=== PATIENT | female | born 1975 | race Caucasian/White ===

== ENCOUNTER → 2022-12-09 | Outpatient (CLI) | payer BC ==
[2022-12-09 15:13] VITALS: BP 138/80; PULSE 88; TEMP 98.2; BMI 37.5
--- NOTE | 2022-12-09 17:16 | P.BASOAP ---
Subjective Progress Note Date: 12/09/22 Principal diagnosis: Morbid obesity 47-year-old female presents for LAP-BAND evaluation. She thinks she was last seen in 2019. She believes she has less than 5 mL in her band. She believes this is a 10 mL band. Patient states she does not feel much restriction. She has gained significant weight since her band was loosened. She thinks her ideal level was around 7 mL previously. Requesting a lap band fill at this time. Objective - Vital Signs Vital signs: Vital Signs Temp 98.2 F 12/09/22 15:04 Pulse 88 12/09/22 15:04 Resp BP 138/80 12/09/22 15:04 Pulse Ox FiO2 Intake & Output 12/08/22 12/09/22 12/09/22 18:59 06:59 18:59 Weight 97.522 kg - Exam Abdomen: Soft, nontender, nondistended Assessment/Plan (1) Morbid obesity Narrative/Plan: 47-year-old female with morbid obesity. She would like to add fluid to the band. We'll add 1 mL at this time. The patient's lap band port was palpated. The site was aseptically prepped. The Lovett needle was advanced into the port. The port was aspirated. Approximate 5 mL was present. A total of 1 ml of fluid was added for a total of 6 mL. Pressure was held and a sterile dressing was applied. Plan: Date: 12/09/22 Initial Weight: Initial BMI: Current Weight: 97.522 kg Current BMI: 37.5 Type of Surgery: Total Volume in Band: 6 Previous Volume: Volume Removed: Volume Added: 1 Band Size:
== END ==
LOC: BARWHC3 14:53
PROVIDERS: ATTEND Surgery
DX: Z48.815 Encounter for surgical aftercare following surgery on the digestive system (principal); Z98.84 Bariatric surgery status; E66.01 Morbid (severe) obesity due to excess calories; Z68.37 Body mass index [BMI] 37.0-37.9, adult
CPT/HCPCS: 99212

== ENCOUNTER → 2023-06-30 | Outpatient (CLI) | payer BC ==
[2023-06-30 13:04] VITALS: BP 147/98; PULSE 75; TEMP 98.5; BMI 34.9
--- NOTE | 2023-06-30 17:45 | P.BASOAP ---
Subjective Progress Note Date: 06/30/23 Principal diagnosis: Morbid obesity Patient was last seen in the bariatric office in November. She had 1 mL added to her band. Patient says she feels decreased restriction. No nausea or vomiting. Only mild heartburn symptoms at times. Objective - Vital Signs Vital signs: Vital Signs Temp 98.5 F 06/30/23 13:01 Pulse 75 06/30/23 13:01 Resp BP 147/98 06/30/23 13:01 Pulse Ox FiO2 Intake & Output 06/29/23 06/30/23 06/30/23 18:59 06:59 18:59 Weight 89.494 kg - Exam Abdomen: Soft, nontender, nondistended Assessment/Plan (1) Morbid obesity Narrative/Plan: Patient would like a band adjustment. Band accessed sterilely. 0.5 mL added for a total of 6.5 mL. Plan: Date: 06/30/23 Initial Weight: Initial BMI: Current Weight: 89.494 kg Current BMI: 34.9 Type of Surgery: Total Volume in Band: 6 Previous Volume: Volume Removed: Volume Added: Band Size:
== END ==
LOC: BARWHC3 12:43
PROVIDERS: ATTEND Surgery
DX: E66.01 Morbid (severe) obesity due to excess calories (principal); E87.6 Hypokalemia; B34.9 Viral infection, unspecified; Z46.51 Encounter for fitting and adjustment of gastric lap band; Z68.34 Body mass index [BMI] 34.0-34.9, adult
CPT/HCPCS: 99212